=== PATIENT | male | born 1985 ===

== ENCOUNTER 2017-03-06 06:43 | Emergency (ER) | payer SELFPAY ==
[2017-03-06 06:56] VITALS: BP 153/88; PULSE 96; RESP 16; TEMP 97.5
--- NOTE | 2017-03-06 07:31 | ED PDOC ---
HPI: Psych/Substance Abuse Time Seen by Provider: 03/06/17 07:01 Chief Complaint (Nursing): Alcohol Ingestion Chief Complaint (Provider): ETOH History Per: Patient History/Exam Limitations: no limitations Onset/Duration Of Symptoms: Hrs Current Symptoms Are (Timing): Gone Now Suicide/Self Injury Attempted (Context): None Modifying Factor(s): Alcohol Additional Complaint(s): The patient is a 31yo male, brought in by EMS for evaluation of alcohol intoxication. Patient reports he was in [place] last night and was drinking until midnight; patient states his female acquaintance called the ambulance because the patient was sleeping in his car. He states he lives in [place] and sates he has his car parked in [place]. Patient denies any medical complaints. Past Medical History Reviewed: Historical Data, Nursing Documentation, Vital Signs Vital Signs: Last Vital Signs Temp 97.5 F L 03/06/17 06:54 Pulse 96 H 03/06/17 06:54 Resp 16 03/06/17 06:54 BP 153/88 H 03/06/17 06:54 Pulse Ox 100 03/06/17 06:54 - Medical History PMH: No Chronic Diseases - Surgical History Surgical History: No Surg Hx - Family History Family History: States: No Known Family Hx - Allergies Allergies/Adverse Reactions: Allergies Allergy/AdvReac Type Severity Reaction Status Date / Time shellfish derived Allergy RASH Verified 03/06/17 06:53 Review of Systems ROS Statement: Except As Marked, All Systems Reviewed And Found Negative Constitutional: Negative for: Fever, Chills Physical Exam - Reviewed Nursing Documentation Reviewed: Yes Vital Signs Reviewed: Yes - Physical Exam Appears: Positive for: Well, Non-toxic, No Acute Distress Head Exam: Positive for: ATRAUMATIC, NORMAL INSPECTION, NORMOCEPHALIC Eye Exam: Positive for: Normal appearance Neck: Positive for: Normal, Supple Cardiovascular/Chest: Positive for: Regular Rate, Rhythm Respiratory: Positive for: Normal Breath Sounds. Negative for: Respiratory Distress Neurologic/Psych: Positive for: Alert, Oriented, Gait (steady). Negative for: Motor/Sensory Deficits - ECG O2 Sat by Pulse Oximetry: 100 (RA) Pulse Ox Interpretation: Normal Medical Decision Making Medical Decision Making: Time: 709 Plan: -- Patient awake, alert and oriented x 3. Contrary to triage note, no alcohol on breath and patient with steady gait. Stable for discharge home. Scribe Attestation: Documented by Ally Hinkle acting as a scribe for Lauren Terry MD. Provider Attestation: All medical record entries made by the Scribe were at my direction and personally dictated by me. I have reviewed the chart and agree that the record accurately reflects my personal performance of the history, physical exam, medical decision making, and the department course for this patient. I have also personally directed, reviewed, and agree with the discharge instructions and disposition. Disposition - Clinical Impression Clinical Impression: Alcohol ingestion - Disposition Disposition: Routine/Home Disposition Time: 07:46 Condition: STABLE Additional Instructions: FOLLOW-UP WITH YOUR PMD. Instructions: Normal Exam (ED) Forms: [employer] (N[place]uan)
[2017-03-07 12:13] VITALS: O2SAT 100
== END 2017-03-06 07:53 | disposition home or self-care (01) ==
LOC: H.ER 06:43
DX: F10.10 Alcohol abuse, uncomplicated (principal)